=== PATIENT | female | born 1940 | race Caucasian/White ===

== ENCOUNTER → 2018-04-20 | Outpatient (CLI) | payer MEDICARE ==
--- NOTE | 2018-04-20 18:37 | Diagnostic Imaging Report ---
Exam: Abdominal film Clinical History: Calculus of kidney Comparison: None. DISCUSSION: Frontal view of the abdomen shows a nonobstructive bowel gas pattern with moderate amount of retained stool, which partly obscures the renal shadows. .There are no dilated, air-filled loops of bowel. 3-4 mm radiopaque density projects over the mid aspect of the right psoas muscle, lateral to the L3 and L4 transverse processes. Multiple pelvic phleboliths. Degenerative changes in the lumbosacral spine. Bilateral total hip prosthesis. IMPRESSION: 1. 3-4 mm radiopaque density projecting over the mid aspect of the right psoas muscle may represent a ureteral calculus in the setting of hematuria. A gonadal vein phlebolith is another diagnostic possibility. CT abdomen and pelvis with renal stone protocol may be obtained for further evaluation. The staff physician below has personally reviewed this exam on the date of dictation. Signed by: Dr. Gregorio Duenas M.D. on 04/20/2018 6:33 PM
== END ==
LOC: RAD 16:39
PROVIDERS: ATTEND Urology
DX: N20.0 Calculus of kidney (principal)
CPT/HCPCS: 74018